=== PATIENT | female | born 1995 | race Caucasian/White ===

== ENCOUNTER 2020-09-27 15:58 | Outpatient (CLI) | payer OTHER, SELFPAY ==
--- NOTE | ~2020-09-27 | XR_ITS ---
EXAMINATION: XR sinus min 3V DATE: 09/27/2020 16:42 INDICATION: Nasal congestion. TECHNIQUE: 5 views of the paranasal sinuses were obtained. COMPARISON: Head CT 02/01/2021 FINDINGS: There is rightward deviation of the nasal septum. There is mucosal thickening in right maxi llary sinus. IMPRESSION: 1. Rightward deviation of the nasal septum. 2. Mucosal thickening in right maxillary sinus. Reviewed, dictated and finalized at location A.
--- NOTE | ~2020-09-27 | XR_ITS ---
EXAMINATION: XR chest 2V DATE: 09/27/2020 16:42 INDICATION: 3 days of cough and congestion TECHNIQUE: PA and lateral views of the chest were obtained. COMPARISON: Chest radiograph dated FINDINGS: The lungs are clear with no focal airspace opacities, pulmonary edema, pleural effusion or pneumothor ax. The cardiomediastinal silhouette is normal. Visualized bones and soft tissues are unremarkable. IMPRESSION: 1. Normal chest radiograph. Reviewed, dictated and finalized at location A. IMPRESSION: 1. Normal chest radiograph.
== END 2020-09-27 15:59 | disposition home or self-care (01) ==
PROVIDERS: PCP Internal Medicine; Visit Provider Internal Medicine
DX: R53.83 Other fatigue (principal); R52 Pain, unspecified; R05 Cough; R09.81 Nasal congestion; J34.2 Deviated nasal septum
CPT/HCPCS: 70220; 71046

== ENCOUNTER 2020-10-14 09:48 | Emergency (ER) | payer OTHER, SELFPAY ==
[2020-10-14 10:19] VITALS: BP 118/73; PULSE 95; RESP 18; TEMP 36.7; O2SAT 98
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
--- NOTE | 2020-10-14 10:37 | PC.NURSE ---
provider Talia FOY in room to [facility].
--- NOTE | 2020-10-14 10:38 | PC.NURSE ---
Pt scored moderate risk on Laurel scale - Provider Talia Rodriguez made aware. No need to initiate SI/HI precautions at this time.
[2020-10-14] MEDS: METOCLOPRAMIDE HCL 10 MG TABLET PO (11:43)
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
[2020-10-14 14:36] VITALS: BP 103/68; PULSE 76; RESP 12; O2SAT 100
[2020-10-14] MEDS: cefTRIAXone 1 GM VIAL 0.5 GM IM (14:37)
[2020-10-14] MEDS: LIDOCAINE HCL 1% LOCAL INJ 20 ML VIAL 2.1 ML XX (14:40)
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
== END 2020-10-14 15:17 | disposition home or self-care (01) ==
LOC: ANHED 16:44
PROVIDERS: Emergency Provider Emergency Medicine
DX: Z04.41 Encounter for examination and observation following alleged adult rape (principal); F17.290 Nicotine dependence, other tobacco product, uncomplicated
CPT/HCPCS: 81025; 96372; 99285; A9270; J0696

== ENCOUNTER 2023-05-05 13:47 | Outpatient (CLI) | payer OTHER, SELFPAY ==
[2023-05-05 14:49] LABS: Basophils Percent Auto 0.5 % (0.2-1.2); Eosinophils Percent Auto 0.5 % (0-4.4); Hematocrit 44.9 % (37.0-47.0); Hemoglobin 15.2 g/dL (12.0-15.0); Immature Granulocyte Absolute 0.01 K/mm3 (0.00-0.031); Immature Granulocyte Percent A 0.2 % (0-0.5); Lymphocytes Absolute Auto 1.42 K/mm3 (0.9-3.2); Lymphocytes Percent Auto 23.3 % (18.3-44.2); Mean Corpuscular HGB Conc 33.9 g/dl (32-36); Mean Corpuscular Hemoglobin 32.1 pg (26-34); Mean Corpuscular Volume 94.9 fl (80-100); Mean Platelet Volume 9.7 fl (7.4-10.4); Monocytes Absolute Auto 0.4 K/mm3 (0.1-0.6); Monocytes Percent Auto 7.2 % (2.6-8.5); Neutrophils Absolute Auto 4.2 K/mm3 (1.3-6.7); Neutrophils Percent Auto 68.3 % (45.5-73.1); Platelet Count Result 329 k/mm3 (150-375); Red Blood Count 4.73 M/mm3 (4.2-5.4); Red Cell Distribution Width 11.9 % (11.5-14.5); White Blood Count 6.1 K/mm3 (4.5-10.0)
[2023-05-05 14:59] LABS: Alanine Aminotransferase 19 U/L (6-35); Albumin Level 4.6 g/dL (3.5-5.1); Alkaline Phosphatase 53 U/L (38-126); Anion Gap 8 mmol/L (8-16); Aspartate Amino Transferase 24 U/L (14-36); Bilirubin,Total 0.7 mg/dL (0.2-1.3); Blood Urea Nitrogen 8 mg/dL (7-17); Calcium 9.5 mg/dL (8.4-10.2); Carbon Dioxide 25 mmol/L (22-30); Chloride 105 mmol/L (98-107); Cholesterol 155 mg/dL (0-200); Estimated Glomerular Filt Rate > 60; Glucose 91 mg/dL (65-110); HDL Direct 58 mg/dL; Potassium 3.6 mmol/L (3.4-5.0); Sodium 138 mmol/L (137-145); Triglycerides 181 mg/dL (<150)
[2023-05-05 15:10] LABS: Appearance Urine Turbid (Clear); Bilirubin Urine 1+ (Negative); Blood Urine 3+ (Negative); Color Urine Red (Yellow); Glucose Urine UA Negative (Negative); Ketones Urine Negative (Negative); LDL Cholesterol Direct 88 mg/dL; Leukocyte Esterase Ur 2+ LEU/UL (Negative); Need Manual Microscopic Need Manual; Nitrate Urine Negative (Negative); Non Pathogenic Casts 0-2; Protein Urine 1+ mg/dL (Negative); RBC Urine >100 /hpf (0-2); Specific Grav Ur 1.017 (1.001-1.035); Squamous Epithelial Cell Urine Occasional /hpf (Few); Urobilinogen Urine 0.2 mg/dL (<2.0); WBC Urine 21-50 /hpf (0-3)
[2023-05-05 15:11] LABS: Bacteria Urine 1+ /hpf
[2023-05-05 15:12] LABS: Add Urine Microscopic? YES
[2023-05-05 15:54] LABS: Free T4 Free Thyroxine 0.66 ng/mL (0.78-2.19); Vitamin D 25 Hydroxy 53.6 ng/mL
[2023-05-05 16:20] LABS: Hemoglobin A1C 5.1 % (<5.7)
== END 2023-05-05 13:48 | disposition home or self-care (01) ==
LOC: ANHLAB 13:50
PROVIDERS: PCP Internal Medicine; Visit Provider Internal Medicine
DX: Z13.29 Encounter for screening for other suspected endocrine disorder (principal); R53.83 Other fatigue; Z13.220 Encounter for screening for lipoid disorders; E55.9 Vitamin D deficiency, unspecified; Z13.1 Encounter for screening for diabetes mellitus; Z79.899 Other long term (current) drug therapy
CPT/HCPCS: 36415; 80053; 80061; 82306; 83036; 84439; 84443; 85025; 87086; 87088

== ENCOUNTER 2024-11-11 17:58 | Emergency (ER) | payer OTHER, SELFPAY ==
--- NOTE | 2024-11-11 18:01 | ED.SKABFB ---
HPI - Skin/Abscess/Foreign Bdy General Stated complaint: RASH Source: patient, RN notes reviewed and old records reviewed Mode of arrival: ambulatory Limitations: no limitations Related Data Home Medications ?Medication ?Instructions ?Recorded ?Confirmed ?Last Taken ?Type aripiprazole 5 mg tablet 5 mg PO 07/13/20 04/27/23 10/13/20 History dextroamphetamine-amphetamine 10 tablet PO 07/13/20 04/27/23 10/13/20 History mg tablet dextroamphetamine-amphetamine 30 tablet PO 07/13/20 04/27/23 10/13/20 History mg tablet lorazepam 1 mg tablet 1 mg PO DAILY PRN Anxiety 07/13/20 04/27/23 Unknown History desvenlafaxine 100 mg 100 mg PO DAILY 10/14/20 04/27/23 10/13/20 History tablet,extended release 24 hour quetiapine 25 mg tablet (Seroquel) DAILY 10/14/20 04/27/23 Unknown History Allergies Allergy/AdvReac Type Severity Reaction Status Date / Time amoxicillin Allergy Intermediate ALLERGIC Verified 04/27/23 08:42 TO PCN Penicillins Allergy Intermediate hives Verified 04/27/23 08:42 Review of Systems Review of Systems: All systems reviewed & are unremarkable except as noted in HPI and below Constitutional: Constitutional: Reports no additional constitutional complaints ENT: Reports system reviewed and no additional complaints, except as documented Cardiovascular: Cardiovascular: Reports no additional cardiovascular complaints, Denies chest pain and Denies dyspnea Respiratory: Respiratory: Reports no additional respiratory complaints, Denies chest congestion, Denies cough and Denies dyspnea Musculoskeletal: Musculoskeletal: Reports no additional musculoskeletal complaints Integumentary/Breasts: Skin/Breast: Reports system reviewed and no additional complaints, except as docu [facility] Past Medical History Medical History (Updated 07/01/23 @ 07:26 by Anitha Carrasco CMA) Encounter for control BMI 22.0-22.9, adult Overactive bladder Urinary incontinence Body aches Fatigue Sinus congestion Cough Social History Social History Smoking status: Current every day smoker Tobacco type: e-cigarettes/vaping Second hand tobacco smoke exposure: Yes Do You Feel Safe in your Home?: Yes Lack of Transportation: No Lack of Food: Never True Current Housing: I Have Housing Concerned About Future Housing: No Difficulty Paying Gas/Electric Bills: No Difficulty Paying for Meds: No Currently Unemployed: No Difficulty w/ Childcare or Family Care: No Occupation/Education: occupation Gender identity (if verbalized by the patient): Female Comments At the time of my signature, I reviewed and agree with the nursing past medical, surgical, social, and family history. There is no relevant family history pertinent to the patient complaint. Exam Const: General: cooperative, healthy appearing, comfortable, no acute distress, well developed, alert and well nourished Nutritional Appearance: well nourished Orientation/consciousness: patient oriented x3 Limitations: no limitations HENMT: Head: normal to inspection Eyes: General: appearance normal, both eyes and all related structures Alignment and Position: alignment normal Neck: Neck: normal visual inspection, full ROM, no lymphadenopathy and no meningeal signs Chest: Chest palpation & inspection: normal inspection of the chest Resp: Effort & Inspection: normal respiratory effort and able to speak in complete sentences Auscultation: clear to auscultation bilaterally, no crackles, no rales, no rhonchi and no wheezes Cardio: Rate: regular rate Skin: General skin exam: normal color and no rashes or lesions noted Neuro: General: patient oriented x3, gait normal, moves all extremities and no meningeal signs Cognition (Neuro): normal cognition Speech: normal speech Gait exam (Neuro): Normal gait present Extrem: General: normal to inspection, full ROM, capillary refill normal and normal gait Psych: Appearance: grossly normal and well kempt Mental Status: mental status grossly normal Speech and movement: Normal speech and movement present and Clear speech present Affect: normal affect Attitude: cooperative Course Course Level of Care: Express Care Visit Vital Signs Vital signs: Reviewed Critical Care Time Critical Care Time Critical Care Time: No Discharge Plan Discharge Patient Language: New Zeal[place] Prescriptions: No Action lorazepam 1 mg tablet 1 mg PO DAILY PRN (Reason: Anxiety) dextroamphetamine-amphetamine 30 mg tablet PO dextroamphetamine-amphetamine 10 mg tablet PO aripiprazole 5 mg tablet 5 mg PO clindamycin phosphate [Cleocin T] 1 % solution 1 applic topical BID Qty: 60 3RF desvenlafaxine 100 mg Tablet Extended Release 24 Hr 100 mg PO DAILY quetiapine [Seroquel] 25 mg Tablet DAILY Follow-up/Referrals: UNKNOWN,DOCTOR [Primary Care Provider]
--- NOTE | 2024-11-11 18:10 | PC.NURSE ---
pt received a phone call from her mother during registration process. pt states her mom found her medication and she does not need to be seen at this facility. pt left without being seen.
== END 2024-11-11 18:10 | disposition left against medical advice (07) ==
PROVIDERS: Emergency Provider Nurse Practitioner
DX: Z53.21 Procedure and treatment not carried out due to patient leaving prior to being seen by health care provider (principal)
CPT/HCPCS: 99199